=== PATIENT | male | born 1960 | race Caucasian/White ===

== ENCOUNTER → 2016-04-11 | Outpatient (CLI) | payer MEDICARE ==
[~2016-04-11] MED LIST: ALLO300T2 PO; Aspirin PO; GABA800T PO; OXYC30TA64 PO
--- NOTE | 2016-04-11 16:08 | RADRPT ---
PROCEDURE: Left knee radiographs. CLINICAL INDICATION: Left knee pain. Postop. TECHNIQUE: Three views. Weight bearing. Frontal, lateral, and patellar view. COMPARISON: 04/19/2015. FINDINGS: There is no fracture or dislocation. The soft tissues are normal. There is a total left knee constrained arthroplasty which appears satisfactory. There is no lytic or blastic lesion. There is no joint effusion. IMPRESSION: 1. Satisfactory postoperative appearance of the left knee. RPTAT: QQ .Yusuf Winslow MD, Date Time Electronically viewed and signed by .Yusuf Winslow MD, on 04/11/2016 16:08 .R/
--- NOTE | 2016-04-12 03:11 | HKNOTE ---
DATE OF SERVICE: 04/11/2016 SUBJECTIVE: This 55-year-old male presents today for followup evaluation status post left total knee replacement on 10/12/2014. The patient also has history of right total knee arthroplasty about 8 to 10 years ago. In regards to the right knee, the patient has no complaints. In regards to the left knee, the patient has had aches that are off and on over the past 3 to 4 months. At its worst, the patient rates the pain at 5 to 6/10 on the pain scale. Pain is onset with or without activity and at random. Denies any falls. The patient does state, however, that he has been overcompensating with the left lower extremity due to ongoing right ankle pain. The patient has upcoming right ankle fusion surgery due to severe right ankle pain with deformity. The patient is using single point cane for assisted ambulation that the patient attributes to the right ankle due to ongoing injury/ailment to the ankle. Other than the aches, the patient states that surgery to the left knee was a huge success and he has no complaints. The patient presents today to make sure that there was no issue in regard to prosthesis that was placed in 2014. OBJECTIVE: VITAL SIGNS: Blood pressure is 134/83, temperature is 98 degrees, pulse is 111 , respiratory rate is 12, height is 6 feet, weight is 195 pounds. EXTREMITIES: Well-healed surgical scar over the left knee. Range of motion is 0-130 degrees with no pain. Gait shows an antalgic, limping gait, but the patient states that pain is to the right ankle on examination. No tenderness to palpation to the left knee. Knee stability is within normal limits as there is no increased laxity to the medial or lateral compartment. RADIOGRAPHIC DATA: X-ray to the left knee on 04/11/2016 showing all components well-aligned in regard to prosthesis. Metal components are well-attached and integrated to the bone. No signs of lucency between metal and bone. ASSESSMENT AND PLAN: High suspicion that often aches to the left knee may be due to overcompensation due to ongoing right ankle issues. The patient was advised to continue with right ankle followups with surgeon performing fusion surgery for close monitoring, advised to continue single point cane for assisted ambulation and stability to prevent any falls. Left knee continues to do well, and the patient was advised to follow up as needed in regard to the left knee. Anyvite 5/325 mg prescription with instructions to take every 4 to 6 hours only at times of severe pain provided for patient, #30 tablets. Continue antibiotic prophylaxis which will be for the rest of his life, and the patient states understanding. Dictated By: SHAKEEL FITZGERALD for VALARIE CALHOUN MD, KP/MARY Conf#: [id number] DID#: [id number]
== END | disposition home or self-care (01) ==
LOC: HKI 13:18
DX: Z47.1 Aftercare following joint replacement surgery (principal); Z96.652 Presence of left artificial knee joint
CPT/HCPCS: 73562; G0463